=== PATIENT | female | born 2000 | race Hispanic/Latino ===

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

== ENCOUNTER 2023-12-31 07:48 | Emergency (ER) | payer MEDICAID ==
[~2023-12-31] VITALS: Ht 170.2 cm; Wt 106.6 kg
[~2023-12-31 07:48] MED LIST: CLOT45CR62 VG; FLUC200T PO
[2023-12-31 08:48] LABS: ADD UA MICROSCOPIC YES; APPEARANCE,URINE TURBID (CLEAR); BILIRUBIN,URINE NEGATIVE (NEGATIVE); COLOR,URINE LIGHT-ORANGE (YELLOW); GLUCOSE, URINE (UA) NEGATIVE (NEGATIVE); KETONES,URINE NEGATIVE (NEGATIVE); LEUKOCYTE ESTERASE ,URINE 500 Leu/uL (NEGATIVE); NITRATE,URINE 1+ (NEGATIVE); OCCULT BLOOD,URINE MODERATE (NEGATIVE); PH,URINE 5.5 (5.0-8.0); PROTEIN,URINE 50 mg/dL (NEGATIVE); UROBILINOGEN,URINE 0.2 mg/dL (0.2-1.0)
[2023-12-31 08:52] LABS: HCG,QUALITATIVE URINE NEGATIVE (NEGATIVE)
[2023-12-31 08:54] LABS: MUCUS,URINE RARE LPF (None Seen); RBC,URINE 26-50 /HPF (0-1); SQUAMOUS EPITHELIAL CELL,UR FEW /HPF (0-2); TRANSITIONAL EPI CELLS,URINE RARE /HPF (None Seen); WBC CLUMP MANY /HPF (0-1); WBC,URINE TNTC /HPF (0-1)
[2023-12-31 09:02] LABS: RAPID GROUP A STREP negative (NEGATIVE)
[2023-12-31 09:07] LABS: SARS-CoV-2, RNA, NAAT NEGATIVE SARS CoV-2 (NEGATIVE)
[2023-12-31 09:16] LABS: INFLUENZA TYPE A Negative For Type A (NEGATIVE); INFLUENZA TYPE B Negative For Type B (NEGATIVE)
[2023-12-31] MEDS: KETOROLAC 15MG/ML VIAL (15MG/ML) IV ONE (09:17)
[2023-12-31] MEDS: CEFTRIAXONE 1G VIAL IVPB ONE (09:18)
[2023-12-31] MEDS: [UNRECOGNIZED DRUG - OTHER] IV ONE ×2 (09:19→11:16)
[2023-12-31] MEDS: ACETAMINOPHEN 500 MG TABLET PO ONE (11:16)
[2023-12-31 12:30] VITALS: TEMP 100
[2023-12-31 12:53] VITALS: BP 101/81; PULSE 98; RESP 20; O2SAT 99
[2023-12-31] MEDS ORDERED: SULF1TAB42 PO (13:35)
== END 2023-12-31 13:48 | disposition home or self-care (01) ==
LOC: EDH 07:48
DX: N39.0 Urinary tract infection, site not specified (principal); M54.9 Dorsalgia, unspecified; Z20.822 Contact with and (suspected) exposure to COVID-19; Z79.899 Other long term (current) drug therapy; Z98.890 Other specified postprocedural states
CPT/HCPCS: 99284; 96365; 96361; 87635; 96375; 87086 ×2; 87186; 87880; 87804 ×2; 81001; 81025; 72100; J7030 ×3; J0696; J1885

== ENCOUNTER 2025-05-30 04:12 | Emergency (ER) | payer MEDICAID ==
[~2025-05-30] VITALS: Ht 170.2 cm; Wt 117.0 kg
[~2025-05-30 04:12] MED LIST changes: +SULF1TAB42 PO
[2025-05-30 04:43] LABS: HCG,QUALITATIVE URINE NEGATIVE (NEGATIVE)
[2025-05-30 04:45] LABS: APPEARANCE,URINE CLOUDY (CLEAR); GLUCOSE, URINE (UA) NEGATIVE (NEGATIVE); LEUKOCYTE ESTERASE ,URINE NEGATIVE Leu/uL (NEGATIVE); NITRATE,URINE NEGATIVE (NEGATIVE); OCCULT BLOOD,URINE NEGATIVE (NEGATIVE)
[2025-05-30 04:55] LABS: ADD UA MICROSCOPIC YES
[2025-05-30 04:56] LABS: IMMATURE GRANULOCYTE ABSOLUTE 0.04 K/uL (0-1); NUCLEATED RED BLOOD CELLS 0.0 % (0.0-0.19); PLATELET COUNT (AUTO) 329 K/uL (130-400); RED BLOOD CELL COUNT(AUTO) 4.93 MIL/uL (4.00-5.50); RED CELL DISTRIBUTION WIDTH 13.5 % (11.0-15.5); WHITE BLOOD COUNT (AUTO) 14.1 K/uL (4.8-10.8)
[2025-05-30 04:56] LABS: SQUAMOUS EPITHELIAL CELL,UR RARE /HPF (0-2)
--- NOTE | 2025-05-30 04:56 | ERN ---
General Chief Complaint: Abdominal Pain Stated Complaint: C/O LOWER ABD PAIN X 2 MONTHS W/CP X 2 MONTHS Time Seen by MD: 04:29 Source: patient History of Present Illness Initial Comments Patient is a 25-year-old female coming in with multiple complaints. Patient states that she has been having chest discomfort sharp chest discomfort for one year as well as abdominal discomfort for one year. He has been evaluated ERs but states that the pain goes and comes. She has not followed up with the PCP yet. Allergies: Coded Allergies: No Known Drug Allergies (Unverified Allergy, Unknown, 04/21/20) Home Meds Active Scripts Sulfamethoxazole/Trimethoprim (Bactrim Ds Tablet) 800 Mg-160 Mg Tablet, 1 TAB PO BID for daily for 7 Days, #14 TAB Prov:FREDDY WOOTEN MD 12/31/23 Clotrimazole (Clotrimazole) 1 % Cream.appl, 45 GM VG DAILY for 3 Days, #3 APPL Prov:DARRELL ALAMO 12/29/23 Fluconazole (Diflucan) 200 Mg Tablet, 200 MG PO DAILY, #2 TAB Take one tablet p.o. x1 dose, may repeat dose in 10 days. Prov:DARRELL ALAMO 12/29/23 Past Medical History Past Medical History: No Pertinent History Past Surgical History: Female( History) History: Not Applicable LMP: May 09, 2025 ROS Dictation CONSTITUTIONAL: No chills, no fever, no weakness, no diaphoresis, no malaise. HEAD/FACE: No signs of trauma. EENT: No eye pain, no blurred vision, no tearing, no double vision, no ear pain, no ear discharge, no nose pain, no nasal congestion, no throat pain, no throat swelling, no mouth pain. RESPIRATORY: No cough, no orthopnea, no SOB, no stridor, no wheezing. CARDIOVASCULAR: chest pain, no edema, no palpitations, no syncope. GASTROINTESTINAL/ABDOMINAL: abdominal pain, no constipation, no diarrhea, no nausea, no vomiting. GENITOURINARY: No abnormal discharge, no dysuria, no frequent urination, no hematuria. No complaints of pain in the genitals. MUSCULOSKELETAL: No back pain, no gout, no joint pain, no joint swelling, no muscle pain, no muscle stiffness, no neck pain. INTEGUMENTARY: No change in color, no change in hair/nails, no dryness, no lesion, no lumps, no rash. NEUROLOGICAL/PSYCH: No anxiety, not depressed, no emotional problem, no headache, no numbness, no pre-existing deficit, no history of seizures, no tremors, no weakness. HEMATOLOGIC/LYMPHATIC: Not anemic, no history of blood clots, no apparent bleeding, no bruising, glands not swollen. All Systems Negative, Except as Noted. Physical Exam Physical Exam Dictation VITAL SIGNS: Reviewed. GENERAL APPEARANCE: Alert, oriented x3, no acute distress, obese. HEAD AND FACE: Non-traumatic. EYES: PERRL, pink conjunctivas, eyelid no trauma, anterior chamber clear. EARS: Pinnas intact and no signs of trauma or erythema. Ear canals clear and no discharge. TMs no erythema. NOSE: No discharge, no bleeding. OROPHARYNX: Mouth normal, teeth no caries, tongue pink. Pharynx clear, no erythema. Tonsils no exudates, no abscesses noted. Mucous membrane moist. NECK: Supple, non-tender, no thyromegaly, no masses, no JVD, no bruits. BREAST: Deferred. CHEST: No tenderness, no crepitus, no paradoxical movement, no retractions. LUNGS: Clear, well-ventilated, symmetric, no rales, no wheezing, no rhonchi, no stridor, good breath sounds bilaterally. HEART: Regular rate, regular rhythm, no murmur, no gallops. VASCULAR: No peripheral edema. ABDOMEN: Soft, positive bowel sounds, nondistended, no guarding, nontender, no rebound, no masses no hepatomegaly, no splenomegaly, no Rosales's sign, no hernias. RECTAL: Deferred. GENITAL: Deferred. NEUROLOGICAL: Normal speech, gross motor function intact, gross sensory function intact. MUSCULOSKELETAL: Neck nontender, full range of motion, back nontender, full range of motion. EXTREMITIES: Nontender, full range of motion. SKIN: Color pink, dry, no turgor, no rash, no lacerations, no abrasions, no contusions. LYMPHATICS: Deferred. Results Laboratory and Microbiology Lab and Micro Result Laboratory Tests Test 05/30/25 04:20 05/30/25 04:49 Urine Color YELLOW (YELLOW) Urine Appearance CLOUDY (CLEAR) H Urine pH 5.5 (5.0-8.0) Urine Specific [place] 1.029 (1.001-1.031) Urine Protein 10 mg/dL (NEGATIVE) H Urine Glucose (UA) NEGATIVE mg/dL (NEGATIVE) Urine Ketones NEGATIVE mg/dL (NEGATIVE) Urine Occult Blood NEGATIVE (NEGATIVE) Urine Nitrate NEGATIVE (NEGATIVE) Urine Bilirubin NEGATIVE mg/dL (NEGATIVE) Urine Urobilinogen 0.2 mg/dL (0.2-1.0) Urine Leukocyte Esterase NEGATIVE Guillaume/uL Urine RBC 2-5 /HPF (0-1) H Urine WBC 6-10 /HPF (0-1) H Urine Squamous Epithelial Cells RARE /HPF (0-2) Urine Bacteria FEW /HPF (None Seen) Urine HCG, Qualitative NEGATIVE (NEGATIVE) White Blood Count 14.1 K/uL (4.8-10.8) H Red Blood Count 4.93 MIL/uL (4.00-5.50) Hemoglobin 13.8 g/dL (12.0-16.0) Hematocrit 40.8 % (36-48) Mean Corpuscular Volume 82.8 fL (79-99) Mean Corpuscular Hemoglobin 28.0 pg (27.0-33.0) Mean Corpuscular Hemoglobin Concent 33.8 g/dL (32.0-36.0) Red Cell Distribution Width 13.5 % (11.0-15.5) Platelet Count 329 K/uL (130-400) Mean Platelet Volume 9.6 fL (7.5-10.5) Immature Granulocyte % (Auto) 0.3 % (0-1) Neutrophils (%) (Auto) 60.7 % (40.0-77.0) Lymphocytes (%) (Auto) 30.8 % (21.0-51.0) Monocytes (%) (Auto) 6.7 % (3.0-13.0) Eosinophils (%) (Auto) 1.1 % (0.0-8.0) Basophils (%) (Auto) 0.4 % (0.0-5.0) Neutrophils # (Auto) 8.5 K/uL (1.8-7.7) H Lymphocytes # (Auto) 4.3 K/uL (1.0-4.8) Monocytes # (Auto) 0.9 K/uL (0.1-1.0) Eosinophils # (Auto) 0.15 K/uL (0.00-0.70) Basophils # (Auto) 0.06 K/uL (0.00-0.20) Absolute Immature Granulocyte (auto 0.04 K/uL (0-1) Nucleated Red Blood Cells 0.0 % (0.0-0.19) Sodium Level 142 mmol/L (136-145) Potassium Level 4.2 mmol/L (3.5-5.1) Chloride Level 106 mmol/L (101-111) Carbon Dioxide Level 27 mmol/L (21-32) Blood Urea Nitrogen 12 mg/dL (7-18) Creatinine 0.8 mg/dL (0.5-1.0) Glomerular Filtration Rate Calc 105 mL/min (>90) Random Glucose 101 mg/dL (70-105) Total Calcium 8.4 mg/dL (8.5-10.1) L Troponin I High Sensitivity < 4 ng/L (4-50) L Labs Reviewed?: Yes EKG/XRAY/US/CT/MRI EKG Comment 05/30/2025 time 4:55 a.m. Ventricular rate 84 Sinus rhythm [place] [address] wave elevation or depression CT Scan Comment [place] [address] [place] [address] IMAGING REPORT Signed PATIENT: GABRIELLE HORTA MR#: [id number] : 2000 SEX: F AGE: 25 LOCATION: [facility] ORDER 4 STATUS: REG ER REPORT#: [id number] SERVICE 3 REASON: lower abd pain ORDERING PHYSICIAN: MORENO SINGH MD PROCEDURE: ABD PEL WO - CT ABDOMEN/PELVIS W/O CONTRAST EXAM: CT Abdomen and Pelvis Without IV contrast CLINICAL HISTORY: Lower abdominal pain. TECHNIQUE: Axial computed tomography images of the abdomen and pelvis without intravenous contrast. CONTRAST: No IV contrast. COMPARISON: None provided. FINDINGS: LUNG BASES: The lung bases appear clear. No pleural effusions are seen. LIVER: The liver is enlarged and measures 23.2 cm in craniocaudal span. There is hepatic steatosis. GALLBLADDER AND BILE DUCTS: The gallbladder appears within normal limits. No radioopaque gallstones are seen. No biliary ductal dilatation is evident. PANCREAS: Unremarkable. SPLEEN: Unremarkable. ADRENAL GLANDS: Unremarkable. KIDNEYS, URETERS, AND BLADDER: The kidneys appear within normal limits. There is no hydronephrosis or hydroureter. No urinary calculi are seen. STOMACH AND BOWEL: Unremarkable appearance of the stomach and bowel. No evidence of bowel obstruction. No evidence suggesting enteritis or colitis. APPENDIX: No evidence of acute appendicitis on CT examination. PERITONEUM: No free fluid. No free air. LYMPH NODES: No lymphadenopathy is evident. REPRODUCTIVE: Ill-defined oval hypodense cystic lesion in the right adnexa measuring 5.0 x 3.4 x 3.3 cm, concerning for a right ovarian cyst. VASCULATURE: No evidence of abdominal aortic aneurysm. BONES: No aggressive appearing osseous lesion. No acute osseous pathology evident. IMPRESSION: No acute intra-abdominal or pelvic abnormality. Hepatomegaly with hepatic steatosis. Ill-defined oval hypodense cystic lesion in the right adnexa measuring 5.0 x 3.4 x 3.3 cm, concerning for a right ovarian cyst. Suggest further evaluation with an ultrasound. /[place] DICTATED BY: CATA MACKENZIE Jr., MD DATE: 05/30/25718 ELECTRONICALLY SIGNED BY: CATA MACKENZIE Jr., MD DATE: 05/30/25718 [facility] MDM: Differential diagnosis: Ovarian cyst, Rationale: Tests considered and ordered secondary to shared decision making inc lude: Previous outside records reviewed: Old ER visits. Risk of complication and/or morbidity or mortality of patient management: None Medications-Per medication reconciliation Need for hospitalization: Patient does not meet criteria for hospitalization. Need for emergency major/minor surgery: No There are no social concerns with this patient. Prescription drug management Prescriptions will include symptomatic care Patient's prior external medical records from other ER visits were reviewed by me as indicated. Prior testing and results from previous visits were reviewed. Prior tests were taken into account with medical decision making and resource utilization, independent historian/historians were used to obtain complete medical history. I independently interpreted the test that were performed, results were reviewed by me and considered findings on radiology if ordered. Medical management and examination interpretation discussions were had by me with other qualified healthcare professionals as indicated for the patient's care. ED Course Orders Procedure Category Date Status Time Cbc With Differential LAB 05/30/25 Complete 04:30 ,Urine Test LAB 05/30/25 Complete 04:30 Urinalysis Profile LAB 05/30/25 Complete 04:30 Basic Metabolic Panel LAB 05/30/25 Complete 04:30 12 Lead Ekg Tracing- EKG 05/30/25 Logged Technical 04:48 Troponin I High LAB 05/30/25 Complete Sensitivity 04:48 Lidocaine Hcl 2% PHA 05/30/25 Complete Viscous (Lidocaine Hcl 05:00 Mag/Alum/Simeth 30ml PHA 05/30/25 Complete (Maalox Plus 30ml) 05:00 Culture Urine SKIP 05/30/25 In Process 04:58 Ct Abdomen/Pelvis W/O CT 05/30/25 Resulted Contrast 05:24 Us Pelvic Non-Ob Comp US 05/30/25 Resulted 06:21 Ondansetron 4mg Inj PHA 05/30/25 Complete (Zofran 4mg Inj) 07:30 Ketorolac PHA 05/30/25 Complete Tromethamine 30mg/Ml 07:30 Morphine 2mg Syg PHA 05/30/25 Complete (Morphine 2mg Syg) 07:30 Current Medications Medications (Trade) Dose Ordered Sig/Jono Route PRN Reason Start Time Stop Time Status Last Admin Dose Admin Al Hydroxide/Mg Hydroxide (MAALox PLUS 30ML) 30 ml ONCE ONCE PO 05/30/25 05:00 05/30/25 05:01 DC 05/30/25 05:09 Ketorolac Tromethamine (toRADol) 30 mg ONCE ONCE IVP 05/30/25 07:30 05/30/25 07:31 DC Lidocaine HCl (Lidocaine HCl 2% Viscous) 10 ml ONCE ONCE PO 05/30/25 05:00 05/30/25 05:01 DC 05/30/25 05:09 Morphine Sulfate (morPHINE 2MG SYG) 2 mg ONCE ONCE IVP 05/30/25 07:30 05/30/25 07:31 DC Ondansetron HCl (zoFRAN 4MG INJ) 4 mg ONCE ONCE IVP 05/30/25 07:30 05/30/25 07:31 DC Vital Signs Date Time Temp Pulse Resp B/P (MAP) Pulse Ox O2 Delivery O2 Flow Rate FiO2 05/30/25 07:06 82 19 122/84 98 Room Air* 0 05/30/25 05:57 85 20 114/57 98 Room Air* 0 05/30/25 04:39 97.5 95 21 139/77 100 Room Air* 0 05/30/25 04:14 97.5 90 20 124/82 97 Room Air DX & DISP Disposition: Discharge Departure Impression: Primary Impression: Abdominal pain Condition: Stable Scripts Ketorolac Tromethamine (Ketorolac Tromethamine) 10 Mg Tablet 1 TAB PO BID PRN for pain for 5 Days, #10 TAB 0 Refills Prov: LENORA GONZALEZ MD 05/30/25 Referrals: NONE (PCP) JESSICA MOORE MD, ISABEL MD May 30, 2025 04:56 LENORA GONZALEZ MD May 30, 2025 07:39
[2025-05-30] MEDS: MAG/ALUM/SIMETH 30 ML UDCUP PO ONE (05:09)
[2025-05-30] MEDS: LIDOCAINE HCL 2% VISCOUS 15 ML UDCUP PO ONE (05:09)
[2025-05-30 05:10] LABS: CREATININE 0.8 mg/dL (0.5-1.0); GLOMERULAR FILTR. RATE CALC 105.0 mL/min (>90); GLUCOSE,RANDOM 101.0 mg/dL (70-105); SODIUM SERUM 142.0 mmol/L (136-145); UREA NITROGEN, BLOOD 12.0 mg/dL (7-18)
--- NOTE | 2025-05-30 06:20 | HMCIMG ---
EXAM: CT Abdomen and Pelvis Without IV contrast CLINICAL HISTORY: Lower abdominal pain. TECHNIQUE: Axial computed tomography images of the abdomen and pelvis without intravenous contrast. CONTRAST: No IV contrast. COMPARISON: None provided. FINDINGS: LUNG BASES: The lung bases appear clear. No pleural effusions are seen. LIVER: The liver is enlarged and measures 23.2 cm in craniocaudal span. There is hepatic steatosis. GALLBLADDER AND BILE DUCTS: The gallbladder appears within normal limits. No radioopaque gallstones are seen. No biliary ductal dilatation is evident. PANCREAS: Unremarkable. SPLEEN: Unremarkable. ADRENAL GLANDS: Unremarkable. KIDNEYS, URETERS, AND BLADDER: The kidneys appear within normal limits. There is no hydronephrosis or hydroureter. No urinary calculi are seen. STOMACH AND BOWEL: Unremarkable appearance of the stomach and bowel. No evidence of bowel obstruction. No evidence suggesting enteritis or colitis. APPENDIX: No evidence of acute appendicitis on CT examination. PERITONEUM: No free fluid. No free air. LYMPH NODES: No lymphadenopathy is evident. REPRODUCTIVE: Ill-defined oval hypodense cystic lesion in the right adnexa measuring 5.0 x 3.4 x 3.3 cm, concerning for a right ovarian cyst. VASCULATURE: No evidence of abdominal aortic aneurysm. BONES: No aggressive appearing osseous lesion. No acute osseous pathology evident. IMPRESSION: No acute intra-abdominal or pelvic abnormality. Hepatomegaly with hepatic steatosis. Ill-defined oval hypodense cystic lesion in the right adnexa measuring 5.0 x 3.4 x 3.3 cm, concerning for a right ovarian cyst. Suggest further evaluation with an ultrasound. /[place]
--- NOTE | 2025-05-30 07:06 | NUR ---
REPORT GIVEN TO JIMBO AKINS AT THIS TIME
--- NOTE | 2025-05-30 07:33 | HMCIMG ---
EXAM: US Pelvis, Complete Transabdominal COMPARISON: CT abdomen and pelvis without contrast, May 30, 2025. CLINICAL HISTORY: Pelvic pain TECHNIQUE: Transvaginal and transabdominal pelvic ultrasound (complete) with image documentation. FINDINGS: UTERUS / CERVIX: The uterus measures approximately 11.7 4.4 5.4 cm and appears mildly bulky. The myometrium appears homogeneous. No uterine fibroid or focal myometrial mass is identified. The cervix appears unremarkable. ENDOMETRIUM: The endometrium measures approximately 7 mm in thickness and appears within normal limits. RIGHT OVARY: The right ovary measures approximately 3.1 2.3 2.8 cm. A simple appearing cyst measuring approximately 2.9 3.4 4.1 cm is noted. Normal arterial and venous Doppler flow is demonstrated. LEFT OVARY: The left ovary measures approximately 3.4 1.9 2.1 cm. Normal arterial and venous Doppler flow is demonstrated. No focal ovarian mass is identified. FREE FLUID: No free fluid is seen in the pelvis. IMPRESSION: 1. No acute pelvic pathology. 2. Simple cyst in the right ovary measuring up to 4.1 cm. A follow-up pelvic ultrasound may be considered in 68 weeks to document resolution of the right ovarian cyst. 3. Mildly bulky uterus without a focal myometrial lesion. 4. No significant interval change. /[place]
[2025-05-30] MEDS ORDERED: KETO10TA2 PO (07:38)
[2025-05-30 08:19] VITALS: BP 125/77; PULSE 82; RESP 12; TEMP 98.2; O2SAT 97
--- NOTE | 2025-05-30 10:16 | EKG ---
[facility] Test Date: 2025-05-30 Test Time: 04:55:28 Pat Name: GABRIELLE HORTA Department: [facility] Room: Gender: F [employer] Filling: [id number] : 2000 Requested By: MORENO SINGH Order Number: [id number] Reading MD: Ahsan Rivera Measurements Intervals [place] Rate: 84 P: 20 [place]: 179 QRS: -16 QRSD: 93 T: 6 QT: 365 QTc: 433 Interpretive Statements Sinus rhythm No previous ECG available for comparison Electronically Signed On 05-30-2025 21:10:00 CODING TECH by Ahsan Rivera Please click the below link to view image of tracing.
== END 2025-05-30 08:22 | disposition home or self-care (01) ==
LOC: EDH 04:12
DX: R10.30 Lower abdominal pain, unspecified (principal); R07.89 Other chest pain; Z98.890 Other specified postprocedural states
CPT/HCPCS: 99285; 74176; 96374; 76856; 96375; 84484; 80048; 85025; 87086; 81001; 81025; 36415; 93005; J1885; J2405